=== PATIENT | female | born 1995 | race African-American/Black ===

== ENCOUNTER 2021-02-24 17:32 | Emergency (ER) | payer OTHER, SELFPAY ==
[2021-02-24 18:17] VITALS: BP 132/74; PULSE 87; RESP 18; TEMP 36.8; O2SAT 100; BMI 22.3
--- NOTE | 2021-02-24 18:24 | PC.NURSE ---
pt was given tylenol 650 at 182
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
== END 2021-02-24 21:09 | disposition home or self-care (01) ==
PROVIDERS: Emergency Provider Internal Medicine
DX: S16.1XXA Strain of muscle, fascia and tendon at neck level, initial encounter (principal); M54.2 Cervicalgia; V43.52XA Car driver injured in collision with other type car in traffic accident, initial encounter; Y93.9 Activity, unspecified; Y92.410 Unspecified street and highway as the place of occurrence of the external cause; Y99.9 Unspecified external cause status; Z79.899 Other long term (current) drug therapy
CPT/HCPCS: 99283